=== PATIENT | male | born 2000 | race Caucasian/White ===

== ENCOUNTER 2019-02-14 16:45 | Emergency (ER) | payer MEDICAID ==
[~2019-02-14] VITALS: Ht 165.1 cm; Wt 95.0 kg
[2019-02-14] MEDS ORDERED: SODIUM CHLORIDE 0.9% 1,000 ML IV ONE (18:24)
[2019-02-14] MEDS ORDERED: FAMOTIDINE 20MG/2ML VIAL IV STA (18:24)
[2019-02-14] MEDS ORDERED: MAGNESIUM/ALUMINUM HYDROXIDE/SIMETHICONE 30ML UDC PO STA (18:24)
[2019-02-14 19:15] LABS: BASOPHILS % 0.8 % (0.0-2.0); EOSINOPHILS % 3.7 % (0.0-5.0); HEMATOCRIT. 48.4 % (42.0-52.0); HEMOGLOBIN. 16.1 g/dL (14.0-18.0); LYMPHOCYTES % 24.8 % (20.0-50.0); MEAN CORPUSCULAR HEMOGLOBIN 31.5 pg (28.0-32.0); MEAN CORPUSCULAR VOLUME 94.9 fL (80.0-94.0); MEAN PLATELET VOLUME 9.4 fl (7.4-10.4); MONOCYTES % 8.6 % (2.0-8.0); NEUTROPHILS % 62.1 % (40.0-76.0); PLATELET 205 x1000/uL (130-400); RED CELL DISTRIBUTION WIDTH 13.1 % (11.6-14.6)
[2019-02-14 19:18] LABS: CHLORIDE 103 mEq/L (98-107)
[2019-02-14 19:21] LABS: ETHANOL BLOOD < 10 mg/dL
[2019-02-14 19:25] LABS: CREATINE KINASE 134 IU/L (39-308)
[2019-02-14 19:29] LABS: CREATINE KINASE MB FRACTION 1.6 ng/mL (0.5-3.6)
[2019-02-14] MEDS ORDERED: KETOROLAC 30MG/ML VIAL IV ONE (20:15)
[2019-02-14 21:21] VITALS: BP 109/61
== END 2019-02-14 21:24 | disposition home or self-care (01) ==
LOC: ER 16:45
DX: K29.70 Gastritis, unspecified, without bleeding (principal); R07.89 Other chest pain
CPT/HCPCS: 36415; 71045; 80053; 80320; 82550; 82553; 83690; 83880; 84443; 84484; 85025; 93005; 96361; 96374; 96375; 99284; J1885; J3490; J7030; G0480